=== PATIENT | female | born 1950 | race Caucasian/White ===

== ENCOUNTER → 2017-05-12 | Outpatient (CLI) | payer MEDICARE ==
--- NOTE | 2017-05-12 11:08 | MM ---
Reason for exam: history of breast augmentation, asymptomatic. Last mammogram was performed 1 year ago. History: Patient is postmenopausal. Family history of breast cancer in sister at age 49. Silicone gel implants in both breasts, 1980. Took estrogen for 3 years beginning at age 53. Physical Findings: Nurse did not find any significant physical abnormalities on exam. MG 3D Diag Mammo Imp W/Cad [place] Bilateral CC, MLO, and ID view(s) were taken. Prior study comparison: May 07, 2016, bilateral MG 3d diag mammo imp w/cad [facility]. April 25, 2015, bilateral MG diagnostic mammo w CAD [place]. The breast tissue is almost entirely fat. Increased left sided extracapsular rupture. This finding is changed when compared with previous exams. These results were verbally communicated with the patient and result sheet given to the patient on 05/12/17. ASSESSMENT: Benign, BI-RAD 2 RECOMMENDATION: Follow-up diagnostic mammogram of both breasts in 1 year.
== END | disposition home or self-care (01) ==
LOC: RADMAMWWP 09:35
PROVIDERS: ATTEND Obstetrics & Gynecology
DX: R92.8 Other abnormal and inconclusive findings on diagnostic imaging of breast (principal)
CPT/HCPCS: G0204; G0279

== ENCOUNTER 2017-06-10 09:54 | Day surgery (SDC) | payer MEDICARE ==
[2017-06-05 16:06] VITALS: BMI 29.2
[~2017-06-10 09:54] MED LIST: LACTATED RINGERS 1,000 ML IV SCH; LIDOCAINE 1% 20 ML VIAL (10MG/ML) FOR IV START INTRADERMA PRN
[2017-06-10 10:51] VITALS: RESP 18; TEMP 98
[2017-06-10] MEDS ORDERED: LACTATED RINGERS 1,000 ML IV ONE (10:51)
[2017-06-10] MEDS ORDERED: PROPOFOL 10 MG/ML 20 ML VIAL IV ONE (11:25)
--- NOTE | 2017-06-10 11:48 | P.PCN ---
Date of Procedure: 06/10/17 Preoperative Diagnosis: Postoperative Diagnosis: Procedure(s) Performed: BRIEF HISTORY: Patient is a 67-year-old pleasant white female, scheduled for an elective colonoscopy as a part of screening for colorectal neoplasia. Her last colonoscopy was 10 years ago. PROCEDURE PERFORMED: Colonoscopy. PREOPERATIVE DIAGNOSIS: Screening for colon cancer. IV sedation per Anesthesia. PROCEDURE: After informed consent was obtained, the patient, was brought into the endoscopy unit. IV sedation was administered by Anesthesia under continuous monitoring. Digital rectal examination was normal. Initially the Olympus CF- 160 flexible video colonoscope was then inserted in the rectum, and could not be advanced beyond the rectosigmoid colon because of acute angulation in this area. The scope was removed and a pediatric colonoscope was introduced into the rectum and gradually advanced into the cecum with moderate difficulty difficulty. Careful examination was performed as the scope was gradually being withdrawn. Ileocecal valve and the appendiceal orifice were visualized and appeared normal. Prep was excellent. Mucosa of the cecum, ascending colon, transverse colon, descending colon, sigmoid colon, and rectum appeared normal. Retroflexion was performed in the rectum and small internal hemorrhoids were seen. The patient tolerated the procedure well. IMPRESSION: Normal-appearing colon from rectum to cecum with no evidence of colorectal neoplasia . Small internal hemorrhoids. RECOMMENDATIONS: Findings of this examination were discussed with the patient as well as her family. She was advised to have a repeat screening colonoscopy in 10 years. Implants: Indications for Procedure: Operative Findings: Description of Procedure:
[2017-06-10 12:20] VITALS: BP 104/58; PULSE 77
== END 2017-06-10 12:32 | disposition home or self-care (01) ==
LOC: ORWHC2ENDO 09:54
PROVIDERS: ATTEND Internal Medicine Gastroenterology
DX: Z12.11 Encounter for screening for malignant neoplasm of colon (principal); K64.8 Other hemorrhoids; Z88.8 Allergy status to other drugs, medicaments and biological substances
CPT/HCPCS: J2704; G0121

== ENCOUNTER → 2018-05-14 | Outpatient (CLI) | payer MEDICARE ==
--- NOTE | 2018-05-14 11:49 | MM ---
Reason for exam: additional evaluation requested from prior study. Last mammogram was performed 1 year ago. History: Patient is postmenopausal. Family history of breast cancer in sister at age 49. Silicone gel implants in both breasts, 1980. Took estrogen for 3 years beginning at age 53. Physical Findings: Nurse did not find any significant physical abnormalities on exam. MG 3D Diag Mammo Imp W/Cad [place] Bilateral CC, MLO, and ID view(s) were taken. Prior study comparison: May 12, 2017, bilateral MG 3d diag mammo imp w/cad [facility]. May 07, 2016, bilateral MG 3d diag mammo imp w/cad [facility]. There are scattered fibroglandular densities. Bilateral breast prothesis. No significant new findings when compared with previous films. These results were verbally communicated with the patient and result sheet given to the patient on 05/14/18. ASSESSMENT: Benign, BI-RAD 2 RECOMMENDATION: Routine screening mammogram of both breasts in 1 year.
== END | disposition home or self-care (01) ==
LOC: RADMAMWWP 10:44
PROVIDERS: ATTEND Obstetrics & Gynecology
DX: R92.8 Other abnormal and inconclusive findings on diagnostic imaging of breast (principal)
CPT/HCPCS: 77066; G0279; 77062

== ENCOUNTER → 2019-05-30 | Outpatient (CLI) | payer MEDICARE ==
--- NOTE | 2019-05-31 13:15 | MM ---
Reason for exam: screening (asymptomatic). Last mammogram was performed 1 year and 1 month ago. History: Patient is postmenopausal. Family history of breast cancer in sister at age 49. Silicone gel implants in both breasts, 1981. Took estrogen for 3 years beginning at age 53. Physical Findings: A clinical breast exam by your physician is recommended on an annual basis and results should be correlated with mammographic findings. MG Screening Mammo Implant/CAD Bilateral CC, MLO, and ID view(s) were taken. Prior study comparison: May 14, 2018, bilateral MG 3d diag mammo imp w/cad [facility]. May 12, 2017, bilateral MG 3d diag mammo imp w/cad [place]. The breast tissue is heterogeneously dense. This may lower the sensitivity of mammography. Benign appearing bilateral vascular calcifications. No suspicious abnormality. Bilateral prepectoral silicone implants. Left extracapsular rupture or abandoned silicone from prior replacement is seen. ASSESSMENT: Benign, BI-RAD 2 RECOMMENDATION: Routine screening mammogram of both breasts in 1 year. Manage on a clinical basis with regard to left implant rupture versus prior rupture.
== END | disposition home or self-care (01) ==
LOC: RADMAMWWP 09:23
PROVIDERS: ATTEND Obstetrics & Gynecology
DX: Z12.31 Encounter for screening mammogram for malignant neoplasm of breast (principal); Z98.82 Breast implant status
CPT/HCPCS: 77067

== ENCOUNTER → 2019-08-09 | Outpatient (CLI) | payer MEDICARE ==
--- NOTE | 2019-08-09 11:35 | BD ---
EXAMINATION TYPE: Axial Bone Density DATE OF EXAM: 08/09/2019 COMPARISON: 02.05.2015 DEXA bone scan. CLINICAL HISTORY: 69 YR OLD FEMALE....ICD-10 CODE: Z78.0 POST MENOPAUSAL Height: 59.5 Weight: 160 FRAX RISK QUESTIONS: History of Fracture in Adulthood: YES RISK FACTORS HISTORY OF: HX OF GR TOE FX LAST MONTH Family History of Osteoporosis: NONE KNOWN Postmenopausal woman: YES AT ABOUT 51 Take estrogen and/or progesterone medications: IN PAST FOR ABOUT 3 MOS Hyperparathyroidism: NO Adrenal Insufficiency: NO MEDICATIONS: Additional Medications: VIT D, TUMERIC, METOPROLOL FOR RAPID HEART RATE, FLONASE, OTC ALLERGY MEDS, Additional History: ARTHRITIS, RAPID HEART RATE EXAM MEASUREMENTS: Bone mineral densitometry was performed using the [employer] System. Bone mineral density as measured about the Lumbar spine is: ----- L1-L4(G/cm2): 1.209 T Score Values are as follows: ----- L1: 0.5 ----- L2: 0.1 ----- L3: 0.5 ----- L4: -0.3 ----- L1-L4: 0.2 Bone mineral density has: Increased 2.2% since study of: 02.05.2015 Bone mineral density about the R hip (g/cm2): 1.022 Bone mineral density about the L hip (g/cm2): 1.018 T Score values are as follows: -----R Neck: -0.7 -----L Neck: -0.5 -----R Total: 0.1 -----L Total: 0.1 Bone mineral density has: Increased 3.8% since study of: 02.05.2015 FRAX%s: THERE IS A 7.8% CHANCE FOR A MAJOR OSTEOPOROTIC FX AND A 0.6% FOR HIP....PROBABILITY FOR F X IN 10 YRS TIME IMPRESSION: Normal (Values between +1 and -1 indicate normal bone mass). Consider repeating this study in 5 year s or sooner if there is some new clinical indication. NOTE: T-SCORE=SD OF THE YOUNG ADULT MEAN.
== END | disposition home or self-care (01) ==
LOC: RADBDWWP 10:28
PROVIDERS: ATTEND Obstetrics & Gynecology
DX: Z78.0 Asymptomatic menopausal state (principal)
CPT/HCPCS: 77080

== ENCOUNTER → 2020-08-07 | Outpatient (CLI) | payer MEDICARE ==
--- NOTE | 2020-08-08 11:55 | MM ---
Reason for exam: screening (asymptomatic). Last mammogram was performed 1 year and 2 months ago. History: Patient is postmenopausal. Family history of breast cancer in sister at age 49. Silicone gel implants in both breasts, 1981. Took estrogen for 3 years beginning at age 53. Physical Findings: A clinical breast exam by your physician is recommended on an annual basis and results should be correlated with mammographic findings. MG 3D Screen Mammo Imp/Cad Bilateral CC, MLO, and ID view(s) were taken. Prior study comparison: May 30, 2019, bilateral MG screening mammo implant/CAD. May 14, 2018, bilateral MG 3d diag mammo imp w/cad [place]. The breast tissue is heterogeneously dense. This may lower the sensitivity of mammography. There are benign appearing vascular calcifications bilaterally. There is no dominant lesion. Subglandular extraluminar silicone left consistent to known rupture redemonstrated. Subglandular silicone implants bilaterally redemonstrated. ASSESSMENT: Benign, BI-RAD 2 RECOMMENDATION: Routine screening mammogram of both breasts in 1 year.
== END | disposition home or self-care (01) ==
LOC: RADMAMWWP 10:47
PROVIDERS: ATTEND Obstetrics & Gynecology
DX: Z12.31 Encounter for screening mammogram for malignant neoplasm of breast (principal)
CPT/HCPCS: 77063; 77067

== ENCOUNTER → 2021-08-12 | Outpatient (CLI) | payer MEDICARE ==
--- NOTE | 2021-08-14 09:46 | MM ---
Reason for exam: screening (asymptomatic). Last mammogram was performed 1 year ago. History: Patient is postmenopausal. Family history of breast cancer in sister at age 49. Silicone gel implants in both breasts, 1981. Took estrogen for 3 years beginning at age 53. Physical Findings: A clinical breast exam by your physician is recommended on an annual basis and results should be correlated with mammographic findings. MG 3D Screen Mammo Imp/Cad Bilateral CC, MLO, and ID view(s) were taken. Prior study comparison: August 07, 2020, bilateral MG 3d screen mammo imp/cad. May 30, 2019, bilateral MG screening mammo implant/CAD. The breast tissue is heterogeneously dense. This may lower the sensitivity of mammography. Finding: There are typically benign vascular calcifications in the left breast. Bilateral breast prothesis. ASSESSMENT: Benign, BI-RAD 2 RECOMMENDATION: Routine screening mammogram of both breasts in 1 year.
== END | disposition home or self-care (01) ==
LOC: RADMAMWWP 13:38
PROVIDERS: ATTEND Obstetrics & Gynecology
DX: Z12.31 Encounter for screening mammogram for malignant neoplasm of breast (principal)
CPT/HCPCS: 77063; 77067

== ENCOUNTER → 2022-08-19 | Outpatient (CLI) | payer MEDICARE ==
--- NOTE | 2022-08-20 09:46 | MM ---
Reason for Exam: Hx of breast augmentation, asymptomatic. Last screening mammogram was performed 12 month(s) ago. Patient History: Menarche at age 13. First Full-Term at age 21. Hysterectomy at age 51. Postmenopausal. Estrogen for 3 years from age 53 until age 57. 1981, Bilateral Implants. Sister had breast cancer, age 49. Risk Values: Tricia 5 year model risk: 3.4%. NCI Lifetime model risk: 8.6%. Prior Study Comparison: 05/14/2018 Bilateral Diagnostic Mammogram, [facility]. 05/30/2019 Bilateral Screening Mammogram, [facility]. 08/07/2020 Bilateral Screening Mammogram, [facility]. 08/12/2021 Bilateral Screening Mammogram, [facility]. Tissue Density: There are scattered fibroglandular densities. Findings: Analyzed By CAD. Bilateral granular implants redemonstrated. Benign-appearing vascular consultation bilaterally is again seen. Hyperdense material along the upper outer aspect of left breast implant thought to reflect free silicone is redemonstrated. Benign-appearing left axillary lymph nodes are redemonstrated. There is no suspicious group of microcalcifications or new suspicious mass in either breast. Overall Assessment: Benign, BI-RAD 2 Management: Screening Mammogram of both breasts in 1 year. A clinical breast exam by your physician is recommended on an annual basis and results should be correlated with mammographic findings. Electronically signed and approved by: James Samson M.D.
== END | disposition home or self-care (01) ==
LOC: RADMAMWWP 13:49
PROVIDERS: ATTEND Obstetrics & Gynecology
DX: Z12.31 Encounter for screening mammogram for malignant neoplasm of breast (principal); Z78.0 Asymptomatic menopausal state; Z80.3 Family history of malignant neoplasm of breast
CPT/HCPCS: 77063; 77067

== ENCOUNTER → 2023-03-24 | Outpatient (CLI) | payer MEDICARE ==
--- NOTE | 2023-03-24 13:35 | BD ---
EXAMINATION TYPE: Axial Bone Density DATE OF EXAM: 03/24/2023 CLINICAL HISTORY: 73 year old Female. ICD-10 CODE: Z78.0 ASYMPTOMATIC MENOPAUSAL STATE Height: Weight: 157.1 FRAX RISK QUESTIONS: Alcohol (3 or more units per day): no Family History (Parent hip fracture): no Glucocorticoids (More than 3mos): no (Ex: prednisone, prednisolone, methylprednisolone, dexamethasone, and hydrocortisone). History of Fracture in Adulthood: Secondary Osteoporosis: 1. Type 1 Diabetes: no 2. Hyperthyroidism: no 3. Menopause before 45: no 4. Malnutrition: no 5. Chronic liver disease: no Rheumatoid Arthritis: no Current Tobacco Use: no RISK FACTORS HISTORY OF: Surgery to Spine/Hip(right/left)/Wrist (right/left): no Family History of Osteoporosis: yes Active: no Diet low in dairy products/other sources of calcium: yes Postmenopausal woman: yes Lost more than 2 inches in height since high school: no MEDICATIONS: Additional History: EXAM MEASUREMENTS: Bone mineral densitometry was performed using the [employer] System. Bone mineral density as measured about the Lumbar spine is: ----- L1-L4(G/cm2): 1.184 T Score Values are as follows: ----- L1: 0.1- ----- L2: -0.5 ----- L3: 0.7 ----- L4: -0.3 ----- L1-L4: 0.0 Z Score Values are as follows: ----- L1: 1.6 ----- L2: 1.0 ----- L3: 2.2 ----- L4: 1.2 ----- L1-L4: 1.5 Bone mineral density has: decreased -2.1 % since study of: 08.09.2019 Bone mineral density about the R hip (g/cm2): 0.997 Bone mineral density about the L hip (g/cm2): 0.966 T Score values are as follows: -----R Neck: -0.7 -----L Neck: -0.6 -----R Total: -0.1 -----L Total: -0.3 Z Score values are as follows: -----R Neck: 1.0 -----L Neck: 1.1 -----R Total: 1.4 -----L Total: 1.1 Bone mineral density has: decreased-3.7 % since study of: 08.09.2019 FRAX%s: The graph provided illustrates a 8.3% chance for a major osteoporotic fx and a 0.8% chance fo r the hips probability for fx in 10 years time. IMPRESSION: Normal (Values between +1 and -1 indicate normal bone mass). Consider repeating this study in 5 year s or sooner if there is some new clinical indication. NOTE: T-SCORE=SD OF THE YOUNG ADULT MEAN.
== END | disposition home or self-care (01) ==
LOC: RADBDWWP 10:34
PROVIDERS: ATTEND Family Medicine
DX: Z78.0 Asymptomatic menopausal state (principal)
CPT/HCPCS: 77080

== ENCOUNTER → 2023-08-26 | Outpatient (CLI) | payer MEDICARE ==
--- NOTE | 2023-08-27 20:30 | MM ---
Reason for Exam: Screening (asymptomatic). Last mammogram was performed 1 year(s) and 1 month(s) ago. Patient History: Menarche at age 13. First Full-Term at age 21. Hysterectomy at age 51. Postmenopausal. Estrogen for 3 years from age 53 until age 57. 1981, Bilateral Implants. Sister had breast cancer, age 49. Risk Values: Tricia 5 year model risk: 3.4%. NCI Lifetime model risk: 8.2%. Prior Study Comparison: 08/07/2020 Bilateral Screening Mammogram, [facility]. 08/12/2021 Bilateral Screening Mammogram, [facility]. 08/19/2022 Bilateral MG 3D screen mammo imp/cad., [facility]. Tissue Density: There are scattered fibroglandular densities. Findings: Analyzed By CAD. Bilateral prepectoral silicone implants are demonstrated. There appears to be extracapsular leakage on both sides, previously present on the left but now also seen on the right. There is no suspicious group of microcalcifications or new suspicious mass in either breast. Overall Assessment: Benign, BI-RAD 2 Management: Screening Mammogram of both breasts in 1 year. There appears to be bilateral silicone implant leakage now new on the right. Consider surgical consultation. See note below in regards to patient's increased 5 year Tricia score. Patient should continue monthly self-breast exams. A clinical breast exam by your physician is recommended on an annual basis. This exam should not preclude additional follow-up of suspicious palpable abnormalities. Note on Tricia scores and lifetime risk: 1. A Tricia score greater than 3% is considered moderate risk. If this is the case, consider specialist referral to assess eligibility for a risk reducing agent. 2. If overall lifetime risk for the development of breast cancer is 20% or higher, the patient may qualify for future screening with alternating mammogram and breast MRI. Electronically signed and approved by: Kevon Cardenas M.D. Radiologist
== END | disposition home or self-care (01) ==
LOC: RADMAMWWP 10:57
PROVIDERS: ATTEND Family Medicine
DX: Z12.31 Encounter for screening mammogram for malignant neoplasm of breast (principal); Z78.0 Asymptomatic menopausal state; Z80.3 Family history of malignant neoplasm of breast
CPT/HCPCS: 77063; 77067

== ENCOUNTER → 2023-11-02 | Outpatient (CLI) | payer MEDICARE ==
--- NOTE | 2023-11-02 14:10 | US ---
EXAMINATION TYPE: US abdomen complete DATE OF EXAM: 11/02/2023 COMPARISON: NONE CLINICAL INDICATION: Female, 73 years old with history of R10.812 LEFT UPPER QUADRANT ABDOMINAL TENDE RNESS; x 2 weeks. Hx appendectomy; patient denies any other signs or symptoms TECHNIQUE: Multiple sonographic images of the abdomen are obtained. FINDINGS: EXAM MEASUREMENTS: Liver Length: 10.0 cm Gallbladder Wall: 0.2 cm CBD: 0.3 cm Spleen: 6.8 cm Right Kidney: 10.1 x 4.3 x 5.0 cm Left Kidney: 9.0 x 6.1 x 5.7 cm Pancreas: Most of the pancreas is visualized and shows no gross abnormal body. Liver: wnl Gallbladder: wnl Evidence for sonographic Cole's sign: no CBD: wnl Spleen: wnl Right Kidney: wnl Left Kidney: wnl Upper IVC: wnl Abd Aorta: wnl IMPRESSION: No specific sonographic abnormality identified in the abdomen.
== END | disposition home or self-care (01) ==
LOC: RADUSWWP 09:34
PROVIDERS: ATTEND Family Medicine
DX: R10.812 Left upper quadrant abdominal tenderness (principal)
CPT/HCPCS: 76700

== ENCOUNTER → 2023-11-26 | Outpatient (CLI) | payer MEDICARE ==
[2023-11-26 14:58] LABS: African American GFR (CKD) 71 (>60 ml/min/1.73 sqM); Blood Urea Nitrogen 20 mg/dL (7-17); Non-African American GFR(CKD) 62 (>60 ml/min/1.73 sqM)
--- NOTE | 2023-11-26 16:52 | CT ---
EXAMINATION TYPE: CT abdomen pelvis w con DATE OF EXAM: 11/26/2023 HISTORY: LLQ pain. Diarrhea x3mo. CT DLP: 778.0mGycm Automated Exposure Control for Dose Reduction was Utilized. CONTRAST: CT scan of the abdomen and pelvis is performed with IV Contrast, patient injected with 100 ml mL of I sovue 300. COMPARISON: Ultrasound abdomen November 02, 2023 FINDINGS: LUNG BASES: Partial visualization of rim calcified right breast implant. LIVER/GB: Liver is low dense relative to spleen suggesting fatty infiltrative hepatocellular disease though is less suspicious on recent ultrasound. PANCREAS: No significant abnormality is seen. SPLEEN: No significant abnormality is seen. ADRENALS: No significant abnormality is seen. KIDNEYS: Symmetric cortical medullary uptake and excretion with asymmetric right sided pelvic promine nce suggestive of extrarenal pelvis. No left-sided hydronephrosis. No calyceal dilatation on the righ t. BOWEL: Oral contrast does not reach distal ileal loops making evaluation of distal bowel slightly sub optimal. No abnormal small or large bowel dilatation. Mild wall thickening involving the proximal to mid sigmoid colon is nonspecific finding. UTERUS/ADNEXA: Uterus is surgically absent. LYMPH NODES: No greater than 1cm abdominal or pelvic lymph nodes are appreciated. OSSEOUS STRUCTURES: No significant abnormality is seen. OTHER: No significant additional abnormality is seen. IMPRESSION: Possible mild uncomplicated distal colitis versus product of poor distention. No signific ant acute finding otherwise seen to account for patient's symptoms. No bowel obstruction is present.
== END | disposition home or self-care (01) ==
LOC: RADCTMAIN 14:01
PROVIDERS: ATTEND Family Medicine
DX: R19.7 Diarrhea, unspecified (principal)
CPT/HCPCS: 82565; 84520; 74177; 36415; Q9967

== ENCOUNTER → 2024-08-30 | Outpatient (CLI) | payer MEDICARE ==
--- NOTE | 2024-08-31 09:40 | MM ---
Reason for Exam: Hx of breast augmentation, asymptomatic. Last screening mammogram was performed 12 month(s) ago. Patient History: Menarche at age 13. First Full-Term at age 21. Hysterectomy at age 51. Postmenopausal. Estrogen for 3 years from age 53 until age 57. 1981, Bilateral Implants. Sister had breast cancer, age 49. Risk Values: Tricia 5 year model risk: 3.4%. NCI Lifetime model risk: 7.7%. Prior Study Comparison: 08/12/2021 Bilateral Screening Mammogram, [facility]. 08/19/2022 Bilateral MG 3D screen mammo imp/cad., [facility]. 08/26/2023 Bilateral MG 3D screen mammo imp/cad., [facility]. Tissue Density: There are scattered areas of fibroglandular density. Findings: Analyzed By CAD. There is no suspicious group of microcalcifications or new suspicious mass in either breast. Bilateral implants are intact. Overall Assessment: Benign, BI-RAD 2 Management: Screening Mammogram of both breasts in 1 year. . Patient should continue monthly self-breast exams. A clinical breast exam by your physician is recommended on an annual basis. This exam should not preclude additional follow-up of suspicious palpable abnormalities. Note on Tricia scores and lifetime risk: 1. A Tricia score greater than 3% is considered moderate risk. If this is the case, consider specialist referral to assess eligibility for a risk reducing agent. 2. If overall lifetime risk for the development of breast cancer is 20% or higher, the patient may qualify for future screening with alternating mammogram and breast MRI. [facility], , 08/31/2024 9:37 AM. Electronically signed and approved by: Dixon Hrading M.D. Radiologis
== END | disposition home or self-care (01) ==
LOC: RADMAMWWP 09:08
PROVIDERS: ATTEND Family Medicine
CPT/HCPCS: 77063; 77067